=== PATIENT | female | born 2000 | race American Indian/Alaskan Native ===

== ENCOUNTER 2021-06-17 11:21 | Inpatient (IN) | payer BC, MEDICAID ==
[2021-06-17] MEDS ORDERED: METHYLERGONOVINE MALEATE 0.2 MG/ML VIAL IM PRN (13:12)
[2021-06-17] MEDS ORDERED: MINERAL OIL 30 ML ORAL LIQD PO PRN (13:12)
[2021-06-17] MEDS ORDERED: ePHEDrine SULFATE 50 MG/1 ML INJ IV PRN (13:12)
[2021-06-17] MEDS ORDERED: OXYTOCIN 10 UNIT/1 ML INJ IM PRN (13:12)
[2021-06-17] MEDS ORDERED: LOPERAMIDE 2 MG CAP PO PRN (13:12)
[2021-06-17] MEDS ORDERED: ACETAMINOPHEN 325 MG TAB PO PRN (13:12)
[2021-06-17] MEDS ORDERED: CARBOPROST TROMETHAMINE 250 MCG/1 ML INJ IM PRN (13:12)
[2021-06-17] MEDS ORDERED: miSOPROStol 200 MCG TAB PR PRN (13:12)
--- NOTE | 2021-06-17 13:42 | History and Physical Report ---
History of Present Illness Date of examination: 06/17/21 Date of admission: 06/17/21 11:21 Chief complaint: Sent by [facility] for induction of labor. History of present illness: 21 year old presents to L&D for induction of labor; sent for induction by [facility] due to gestational hypertension and morbid obesity. Patient received care at [facility] and also saw [facility]. 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 labs are as follows: A+, antibody screen negative, rubella immune, hepatitis B surface antigen negative, RPR nonreactive, HIV negative, HSV 2 positive serology, AFP negative, 1 hour sugar test 162 (3 hour OGTT 115, 293, 257, 214), materniT 21 negative, GBS positive. Past History Past Medical History: other (obesity, gestational hypertension, GDM, UTI, dominic nthosis nigricans) Past Surgical History: no surgical history [facility] History: herpes (denies lesions or prodromal symptoms). denies: chlamydia, gonorrhea, hepatitis B, hepatitis C Family/Genetic History: diabetes Social history: lives with family, full code. denies: smoking, alcohol abuse, prescription drug abuse, IV drug use - Obstetrical History Expected Date of Delivery: 07/04/21 Actual Gestation: 37 Week(s) 4 Day(s) : 1 Para: 0 Hx # Term Pregnancies: 0 Number of Pregnancies: 0 Spontaneous Abortions: 0 Induced : 0 Medications and Allergies Allergies Allergy/AdvReac Type Severity Reaction Status Date / Time No Known Allergies Allergy Verified 06/17/21 12:55 Home Medications Medication Instructions Recorded Confirmed Last Taken Type One Daily Tablet 1 tab PO DAILY 06/17/21 06/17/21 06/16/21 History labetaloL 1 tab PO BID 06/17/21 06/17/21 06/17/21 History metFORMIN [Glucophage] 500 mg PO BID 06/17/21 06/17/21 06/17/21 07:30 History Active Meds: Active Medications Acetaminophen (Acetaminophen 325 Mg Tab) 650 mg PO Q4H PRN PRN Reason: Pain, Mild (1-3) Butorphanol Tartrate (Butorphanol 2 Mg/1 Ml Inj) 1 mg IV Q2H PRN PRN Reason: Pain, Moderate(4-6) LABOR PAIN Carboprost Tromethamine (Carboprost Tromethamine 250 Mcg/1 Ml Inj) 250 mcg IM ONCE PRN PRN Reason: Uterine Bleeding Dinoprostone (Dinoprostone 10 Mg Vag Supp) 10 mg VG ONCE ONE Stop: 06/17/21 14:13 Ephedrine Sulfate (Ephedrine Sulfate 50 Mg/1 Ml Inj) 10 mg IV Q2M PRN PRN Reason: Hypotension Fentanyl (Fentanyl 100 Mcg/2 Ml Inj) 100 mcg IV Q2H PRN PRN Reason: Pain,Severe (7-10) LABOR PAIN Lactated Ringer's (Lactated Ringers) 1,000 mls @ 125 mls/hr IV DIRECT JORDAN Oxytocin/Sodium Chloride (Pitocin/Ns 30 Unit/500ml) 30 units in 500 mls @ 40 mls/hr IV TITR JORDAN; Protocol Ampicillin Sodium (Ampicillin/Ns 2 Gm/100 Ml) 2 gm in 100 mls @ 100 mls/hr IV ONCE ONE; Protocol Stop: 06/17/21 15:11 Ampicillin Sodium (Ampicillin/Ns 1 Gm/50 Ml) 1 gm in 50 mls @ 100 mls/hr IV Q4H JORDAN; Protocol Lidocaine (Lidocaine (2%) 20 Mg/1 Ml Vial 20 Ml Mdv) 20 ml INFILTRATI ONCE ONE Stop: 06/17/21 13:13 Loperamide HCl (Loperamide 2 Mg Cap) 2 mg PO ONCE PRN PRN Reason: give with Hemabate Methylergonovine Maleate (Methylergonovine Maleate 0.2 Mg/Ml Vial) 0.2 mg IM ONCE PRN PRN Reason: Uterine Bleeding Mineral Oil (Mineral Oil 30 Ml Oral Liqd) 30 ml PO QHS PRN PRN Reason: Constipation Misoprostol (Misoprostol 200 Mcg Tab) 800 mcg OR ONCE PRN PRN Reason: Uterine Bleeding Ondansetron HCl (Ondansetron 4 Mg/2 Ml Inj) 4 mg IV Q8H PRN PRN Reason: Nausea And Vomiting Oxytocin (Oxytocin 10 Unit/1 Ml Inj) 10 unit IM ONCE PRN PRN Reason: Uterine Bleeding Terbutaline Sulfate (Terbutaline 1 Mg/1 Ml Inj) 0.25 mg SUB-Q ONCE PRN PRN Reason: Hyperstimulation/Hypertonicity Valacyclovir HCl (Valacyclovir 500 Mg Tab) 500 mg PO BID JORDAN Review of Systems All systems: negative (occasional contraction) - Vital Signs Vital signs: Vital Signs Pulse BP 88 131/82 06/17/21 12:50 06/17/21 12:50 Temp Pulse Resp BP Pulse Ox 86 131/82 100 06/17/21 13:22 06/17/21 12:50 06/17/21 13:22 - Physical Exam Abdomen: Positive: normal appearance, soft. Negative: distention, tenderness, guarding, rigidity Genitourinary (Female): Positive: normal external genitalia, normal perenium. Negative: perineal/vulvar lesions (no lesions seen on careful exam with bright light upon admission) Vagina: Positive: normal moisture Uterus: Positive: enlarged. Negative: tender Anus/Rectum: Positive: normal perianal skin Extremities: Positive: normal. Negative: tenderness, edema - Obstetrical FHR: category 1 Uterine Contraction Monitor Mode: External Cervical Dilatation: 0 Cervical Effacement Percentage: 0 (US done at [facility] today confirms cephalic presentation) station: high Uterine Contraction Pattern: Absent Results All other labs normal. Assessment and Plan A: at 37 weeks, 4 days gestation. Gestational hypertension. Gestational diabetes. Class 3 obesity. GBS positive. HSV 2 positive (no lesions or prodromal symptoms). P: Admit. Continuous EFM. GBS prophylaxis. Valtrex suppression of HSV. Preeclamptic labs. Blood glucose every 2 hours. Cervidil for cervical ripening, followed by Pitocin IOL. Discussed with patient risks and benefits of cervidil cervical ripening and Pitocin induction of labor. Patient consented to Cervidil cervical ripening and Pitocin induction of labor.
[2021-06-17] MEDS ORDERED: LIDOCAINE (2%) 20 MG/1 ML VIAL 20 ML MDV INFILTRATI ONE (13:45)
[2021-06-17] MEDS ORDERED: AMPICILLIN/NS 2 GM/100 ML 2 GM/100 ML BAG IV ONE (14:12)
[2021-06-17] MEDS ORDERED: TERBUTALINE 1 MG/1 ML INJ SUB-Q PRN (14:12)
[2021-06-17] MEDS ORDERED: DINOPROSTONE 10 MG VAG SUPP VG ONE (14:12)
[2021-06-17 14:17] LABS: Alanine Aminotransferase 13 units/L (7-56); Blood Urea Nitrogen 9 mg/dL (7-17); Calcium 8.9 mg/dL (8.4-10.2); Hemolysis Index 6; Uric Acid 3.9 mg/dL (3.5-7.6)
[2021-06-17 14:24] LABS: Hematocrit 32.1 % (30.3-42.9); Hemoglobin 9.9 gm/dl (10.1-14.3); Mean Corpuscular HGB Conc 31 % (30-34); Red Blood Count 4.65 M/mm3 (3.65-5.03); Red Cell Distribution Width 18.3 % (13.2-15.2)
[2021-06-17 14:26] LABS: Mean Corpuscular Volume 69 fl (79-97)
[2021-06-17 14:33] LABS: BUN/Creatinine Ratio 15
[2021-06-17 15:54] LABS: Platelet Count 150 K/mm3 (140-440)
[2021-06-17] MEDS: valACYclovir 500 MG TAB PO SCH ×2 (16:05→22:07)
[2021-06-17] MEDS ORDERED: DEXTROSE 50% IN WATER (25GM) 50 ML SYRINGE IV PRN (17:44)
[2021-06-17] MEDS ORDERED: AMPICILLIN/NS 1 GM/50 ML 1 GM/50 ML BAG IV SCH (18:00)
[2021-06-17] MEDS: fentaNYL 100 MCG/2 ML INJ IV PRN ×2 (19:44→22:07)
[2021-06-17] MEDS: LACTATED RINGERS 1,000 ML IV SCH (20:16)
[2021-06-17] MEDS ORDERED: INSULIN REGULAR, HUMAN 100 UNITS/1 ML SUB-Q SCH (22:00)
[2021-06-18] MEDS: fentaNYL 100 MCG/2 ML INJ IV PRN ×3 (00:40→06:43)
[2021-06-18] MEDS: OXYTOCIN DRIP 30 UNITS/500 ML BAG IV SCH (03:00)
--- NOTE | 2021-06-18 06:49 | Event Note ---
Date: 06/18/21 Cervidil was removed overnight due to hyperstimulation which has resolved. Patient is now receiving low dose Pitocin for cervical ripening. Blood sugars and blood pressures stable. Reassuring FHR tracing.
[2021-06-18] MEDS ORDERED: miSOPROStol 25 MCG TAB PO SCH ×2 (10:00→21:00)
[2021-06-18] MEDS: valACYclovir 500 MG TAB PO SCH ×2 (10:10→21:32)
--- NOTE | 2021-06-18 10:50 | Progress Note ---
Subjective - Subjective Date of service: 06/18/21 (late entry for 8:15 am) Principal diagnosis: IUP@ 37.4 wks Patient reports: movement normal, contractions Objective - Vital Signs Vital Signs: Vital Signs - 12hr 06/17/21 06/17/21 06/17/21 22:50 22:55 23:00 Temperature Pulse Rate 74 77 67 Respiratory Rate Blood Pressure O2 Sat by Pulse 99 99 99 Oximetry O2 Sat by Pulse Oximetry [ Bilateral] 06/17/21 06/17/21 06/17/21 23:05 23:12 23:17 Temperature Pulse Rate 67 69 Respiratory Rate Blood Pressure O2 Sat by Pulse 99 100 100 Oximetry O2 Sat by Pulse Oximetry [ Bilateral] 06/17/21 06/17/21 06/17/21 23:22 23:27 23:32 Temperature Pulse Rate 70 62 72 Respiratory Rate Blood Pressure O2 Sat by Pulse 99 100 100 Oximetry O2 Sat by Pulse Oximetry [ Bilateral] 06/17/21 06/17/21 06/17/21 23:37 23:42 23:47 Temperature Pulse Rate 62 69 74 Respiratory Rate Blood Pressure O2 Sat by Pulse 99 100 100 Oximetry O2 Sat by Pulse Oximetry [ Bilateral] 06/17/21 06/17/21 06/18/21 23:52 23:57 00:02 Temperature Pulse Rate 77 66 73 Respiratory Rate Blood Pressure O2 Sat by Pulse 99 99 100 Oximetry O2 Sat by Pulse Oximetry [ Bilateral] 06/18/21 06/18/21 06/18/21 00:07 00:12 00:17 Temperature Pulse Rate 63 74 65 Respiratory Rate Blood Pressure O2 Sat by Pulse 99 100 99 Oximetry O2 Sat by Pulse Oximetry [ Bilateral] 06/18/21 06/18/21 06/18/21 00:22 00:27 00:32 Temperature Pulse Rate 69 82 71 Respiratory Rate Blood Pressure O2 Sat by Pulse 99 100 100 Oximetry O2 Sat by Pulse Oximetry [ Bilateral] 06/18/21 06/18/21 06/18/21 00:37 00:42 00:47 Temperature Pulse Rate 76 73 77 Respiratory Rate Blood Pressure 148/79 O2 Sat by Pulse 100 99 98 Oximetry O2 Sat by Pulse Oximetry [ Bilateral] 06/18/21 06/18/21 06/18/21 00:52 00:57 01:02 Temperature Pulse Rate 69 70 75 Respiratory Rate Blood Pressure O2 Sat by Pulse 99 99 98 Oximetry O2 Sat by Pulse Oximetry [ Bilateral] 06/18/21 06/18/21 06/18/21 01:07 01:10 01:12 Temperature Pulse Rate 75 78 76 Respiratory Rate Blood Pressure 128/67 O2 Sat by Pulse 99 98 Oximetry O2 Sat by Pulse Oximetry [ Bilateral] 06/18/21 06/18/21 06/18/21 01:17 01:22 01:27 Temperature Pulse Rate 72 70 81 Respiratory Rate Blood Pressure O2 Sat by Pulse 98 98 98 Oximetry O2 Sat by Pulse Oximetry [ Bilateral] 06/18/21 06/18/21 06/18/21 01:32 01:37 01:42 Temperature Pulse Rate 67 63 70 Respiratory Rate Blood Pressure O2 Sat by Pulse 100 98 99 Oximetry O2 Sat by Pulse Oximetry [ Bilateral] 06/18/21 06/18/21 06/18/21 01:49 01:54 01:55 Temperature Pulse Rate 77 74 67 Respiratory Rate Blood Pressure 127/67 O2 Sat by Pulse 99 99 Oximetry O2 Sat by Pulse Oximetry [ Bilateral] 06/18/21 06/18/21 06/18/21 01:59 02:04 02:09 Temperature Pulse Rate 67 65 64 Respiratory Rate Blood Pressure O2 Sat by Pulse 98 99 99 Oximetry O2 Sat by Pulse Oximetry [ Bilateral] 06/18/21 06/18/21 06/18/21 02:14 02:19 02:24 Temperature Pulse Rate 66 65 68 Respiratory Rate Blood Pressure O2 Sat by Pulse 100 99 100 Oximetry O2 Sat by Pulse Oximetry [ Bilateral] 06/18/21 06/18/21 06/18/21 02:29 02:31 02:34 Temperature Pulse Rate 83 75 72 Respiratory Rate Blood Pressure 171/90 127/60 O2 Sat by Pulse 100 99 Oximetry O2 Sat by Pulse Oximetry [ Bilateral] 06/18/21 06/18/21 06/18/21 02:42 02:47 02:52 Temperature Pulse Rate 94 H 72 65 Respiratory Rate Blood Pressure O2 Sat by Pulse 0 L 100 99 Oximetry O2 Sat by Pulse Oximetry [ Bilateral] 06/18/21 06/18/21 06/18/21 02:57 03:01 03:02 Temperature Pulse Rate 76 66 71 Respiratory Rate Blood Pressure 143/88 O2 Sat by Pulse 100 100 Oximetry O2 Sat by Pulse Oximetry [ Bilateral] 06/18/21 06/18/21 06/18/21 03:06 03:07 03:12 Temperature Pulse Rate 69 64 70 Respiratory Rate Blood Pressure 141/68 O2 Sat by Pulse 100 100 Oximetry O2 Sat by Pulse Oximetry [ Bilateral] 06/18/21 06/18/21 06/18/21 03:17 03:22 03:27 Temperature Pulse Rate 72 73 84 Respiratory Rate Blood Pressure O2 Sat by Pulse 97 98 97 Oximetry O2 Sat by Pulse Oximetry [ Bilateral] 06/18/21 06/18/21 06/18/21 03:31 03:32 03:34 Temperature Pulse Rate 78 80 72 Respiratory Rate Blood Pressure 141/68 133/63 O2 Sat by Pulse 99 Oximetry O2 Sat by Pulse Oximetry [ Bilateral] 06/18/21 06/18/21 06/18/21 03:37 03:42 03:47 Temperature Pulse Rate 70 66 63 Respiratory Rate Blood Pressure O2 Sat by Pulse 98 98 98 Oximetry O2 Sat by Pulse Oximetry [ Bilateral] 06/18/21 06/18/21 06/18/21 03:52 03:57 04:01 Temperature Pulse Rate 66 72 63 Respiratory Rate Blood Pressure 149/83 O2 Sat by Pulse 98 98 Oximetry O2 Sat by Pulse Oximetry [ Bilateral] 06/18/21 06/18/21 06/18/21 04:02 04:07 04:12 Temperature Pulse Rate 70 65 67 Respiratory Rate Blood Pressure O2 Sat by Pulse 98 99 99 Oximetry O2 Sat by Pulse Oximetry [ Bilateral] 06/18/21 06/18/21 06/18/21 04:20 04:25 04:30 Temperature Pulse Rate 75 68 62 Respiratory Rate Blood Pressure O2 Sat by Pulse 100 100 100 Oximetry O2 Sat by Pulse Oximetry [ Bilateral] 06/18/21 06/18/21 06/18/21 04:31 04:35 04:40 Temperature Pulse Rate 61 67 63 Respiratory Rate Blood Pressure 132/78 O2 Sat by Pulse 100 100 Oximetry O2 Sat by Pulse Oximetry [ Bilateral] 06/18/21 06/18/21 06/18/21 04:45 04:50 04:55 Temperature Pulse Rate 75 74 78 Respiratory Rate Blood Pressure O2 Sat by Pulse 100 100 98 Oximetry O2 Sat by Pulse Oximetry [ Bilateral] 06/18/21 06/18/21 06/18/21 05:02 05:07 05:12 Temperature Pulse Rate 101 H 67 70 Respiratory Rate Blood Pressure 140/87 O2 Sat by Pulse 100 99 99 Oximetry O2 Sat by Pulse Oximetry [ Bilateral] 06/18/21 06/18/21 06/18/21 05:17 05:22 05:27 Temperature Pulse Rate 66 73 69 Respiratory Rate Blood Pressure O2 Sat by Pulse 99 100 100 Oximetry O2 Sat by Pulse Oximetry [ Bilateral] 06/18/21 06/18/21 06/18/21 05:31 05:32 05:37 Temperature Pulse Rate 74 65 70 Respiratory Rate Blood Pressure 128/63 O2 Sat by Pulse 98 99 Oximetry O2 Sat by Pulse Oximetry [ Bilateral] 06/18/21 06/18/21 06/18/21 05:42 05:47 05:52 Temperature Pulse Rate 76 67 73 Respiratory Rate Blood Pressure O2 Sat by Pulse 98 99 98 Oximetry O2 Sat by Pulse Oximetry [ Bilateral] 06/18/21 06/18/21 06/18/21 06:05 06:10 06:15 Temperature Pulse Rate 77 68 72 Respiratory Rate Blood Pressure O2 Sat by Pulse 100 99 97 Oximetry O2 Sat by Pulse Oximetry [ Bilateral] 06/18/21 06/18/21 06/18/21 06:17 06:20 06:22 Temperature Pulse Rate 77 69 80 Respiratory Rate Blood Pressure 145/79 141/70 O2 Sat by Pulse 98 Oximetry O2 Sat by Pulse Oximetry [ Bilateral] 06/18/21 06/18/21 06/18/21 06:25 06:30 06:31 Temperature Pulse Rate 68 66 62 Respiratory Rate Blood Pressure 142/81 O2 Sat by Pulse 99 100 Oximetry O2 Sat by Pulse Oximetry [ Bilateral] 06/18/21 06/18/21 06/18/21 06:35 06:40 06:45 Temperature Pulse Rate 72 79 74 Respiratory Rate Blood Pressure O2 Sat by Pulse 100 100 99 Oximetry O2 Sat by Pulse Oximetry [ Bilateral] 06/18/21 06/18/21 06/18/21 06:50 06:55 07:00 Temperature Pulse Rate 65 74 69 Respiratory Rate Blood Pressure O2 Sat by Pulse 98 96 98 Oximetry O2 Sat by Pulse Oximetry [ Bilateral] 06/18/21 06/18/21 06/18/21 07:01 07:05 07:10 Temperature Pulse Rate 69 74 74 Respiratory Rate Blood Pressure 147/80 O2 Sat by Pulse 97 98 Oximetry O2 Sat by Pulse Oximetry [ Bilateral] 06/18/21 06/18/21 06/18/21 07:15 07:16 07:34 Temperature Pulse Rate 76 73 87 Respiratory Rate Blood Pressure 144/83 O2 Sat by Pulse 95 100 Oximetry O2 Sat by Pulse Oximetry [ Bilateral] 06/18/21 06/18/21 06/18/21 07:38 07:39 07:44 Temperature 98.2 F Pulse Rate 79 70 Respiratory 18 Rate Blood Pressure O2 Sat by Pulse 99 100 Oximetry O2 Sat by Pulse 98 Oximetry [ Bilateral] 06/18/21 06/18/21 06/18/21 07:49 07:54 07:59 Temperature Pulse Rate 69 74 70 Respiratory Rate Blood Pressure O2 Sat by Pulse 99 98 99 Oximetry O2 Sat by Pulse Oximetry [ Bilateral] 06/18/21 06/18/21 06/18/21 08:04 08:09 08:14 Temperature Pulse Rate 71 66 64 Respiratory Rate Blood Pressure O2 Sat by Pulse 100 99 100 Oximetry O2 Sat by Pulse Oximetry [ Bilateral] 06/18/21 06/18/21 06/18/21 08:19 08:24 08:29 Temperature Pulse Rate 70 72 71 Respiratory Rate Blood Pressure O2 Sat by Pulse 99 100 99 Oximetry O2 Sat by Pulse Oximetry [ Bilateral] 06/18/21 06/18/21 06/18/21 08:34 08:39 08:44 Temperature Pulse Rate 65 67 73 Respiratory Rate Blood Pressure O2 Sat by Pulse 98 100 100 Oximetry O2 Sat by Pulse Oximetry [ Bilateral] 06/18/21 06/18/21 06/18/21 08:47 08:49 09:01 Temperature Pulse Rate 70 72 86 Respiratory Rate Blood Pressure 142/63 O2 Sat by Pulse 100 100 Oximetry O2 Sat by Pulse Oximetry [ Bilateral] 06/18/21 06/18/21 10:04 10:10 Temperature Pulse Rate 71 77 Respiratory Rate Blood Pressure 153/86 154/88 O2 Sat by Pulse Oximetry O2 Sat by Pulse Oximetry [ Bilateral] - Labs Labs: Abnormal Labs 06/17/21 06/17/21 06/17/21 13:22 13:22 16:22 Hgb 9.9 L MCV 69 L MCH 21 L RDW 18.3 H Sodium 136 L Carbon Dioxide 21 L POC Glucose 171 H Hemoglobin A1c Alkaline Phosphatase 197 H Total Protein 6.2 L Albumin 3.0 L 08/25/21 08/25/21 18:24 19:08 Hgb MCV MCH RDW Sodium Carbon Dioxide POC Glucose 129 H Hemoglobin A1c 9.6 H Alkaline Phosphatase Total Protein Albumin Laboratory Results - last 24 hr 06/17/21 06/17/21 06/17/21 13:22 13:22 13:22 WBC 6.7 RBC 4.65 Hgb 9.9 L Hct 32.1 MCV 69 L MCH 21 L MCHC 31 RDW 18.3 H Plt Count 150 Sodium Potassium Chloride Carbon Dioxide Anion Gap BUN Creatinine Estimated GFR BUN/Creatinine Ratio Glucose POC Glucose Hemoglobin A1c Uric Acid Calcium Total Bilirubin AST ALT Alkaline Phosphatase Lactate Dehydrogenase Total Protein Albumin Albumin/Globulin Ratio Syphilis IgG Antibody Nonreactive Blood Type A POSITIVE Antibody Screen Negative 06/17/21 06/17/21 06/17/21 13:22 16:22 18:24 WBC RBC Hgb Hct MCV MCH MCHC RDW Plt Count Sodium 136 L Potassium 4.1 Chloride 106.9 Carbon Dioxide 21 L Anion Gap 12 BUN 9 Creatinine 0.6 Estimated GFR > 60 BUN/Creatinine Ratio 15 Glucose 86 POC Glucose 171 H 129 H Hemoglobin A1c Uric Acid 3.9 Calcium 8.9 Total Bilirubin 0.20 AST 17 ALT 13 Alkaline Phosphatase 197 H Lactate Dehydrogenase 165 Total Protein 6.2 L Albumin 3.0 L Albumin/Globulin Ratio 0.9 Syphilis IgG Antibody Blood Type Antibody Screen 06/17/21 06/17/21 06/17/21 19:08 20:25 22:11 WBC RBC Hgb Hct MCV MCH MCHC RDW Plt Count Sodium Potassium Chloride Carbon Dioxide Anion Gap BUN Creatinine Estimated GFR BUN/Creatinine Ratio Glucose POC Glucose 100 99 Hemoglobin A1c 9.6 H Uric Acid Calcium Total Bilirubin AST ALT Alkaline Phosphatase Lactate Dehydrogenase Total Protein Albumin Albumin/Globulin Ratio Syphilis IgG Antibody Blood Type Antibody Screen 06/18/21 06/18/21 06/18/21 00:36 03:22 06:35 WBC RBC Hgb Hct MCV MCH MCHC RDW Plt Count Sodium Potassium Chloride Carbon Dioxide Anion Gap BUN Creatinine Estimated GFR BUN/Creatinine Ratio Glucose POC Glucose 88 87 98 Hemoglobin A1c Uric Acid Calcium Total Bilirubin AST ALT Alkaline Phosphatase Lactate Dehydrogenase Total Protein Albumin Albumin/Globulin Ratio Syphilis IgG Antibody Blood Type Antibody Screen 06/18/21 09:09 WBC RBC Hgb Hct MCV MCH MCHC RDW Plt Count Sodium Potassium Chloride Carbon Dioxide Anion Gap BUN Creatinine Estimated GFR BUN/Creatinine Ratio Glucose POC Glucose 95 Hemoglobin A1c Uric Acid Calcium Total Bilirubin AST ALT Alkaline Phosphatase Lactate Dehydrogenase Total Protein Albumin Albumin/Globulin Ratio Syphilis IgG Antibody Blood Type Antibody Screen
[2021-06-18] MEDS: miSOPROStol 25 MCG TAB PO SCH ×2 (11:15→16:40)
--- NOTE | 2021-06-18 11:15 | Progress Note ---
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 GBS protocal FSBS Q4H D/C Pitocin Give Cytotec 25mcg po in 2 hrs and repeat dose in 6 hr Pain med/Epidural prn Anticipate Subjective - Subjective Date of service: 06/18/21 Principal diagnosis: IUP@ 37.4 wks Patient reports: movement normal Objective - Vital Signs Vital Signs: Vital Signs - 12hr 06/17/21 06/17/21 06/17/21 23:12 23:17 23:22 Temperature Pulse Rate 69 70 Respiratory Rate Blood Pressure O2 Sat by Pulse 100 100 99 Oximetry O2 Sat by Pulse Oximetry [ Bilateral] 06/17/21 06/17/21 06/17/21 23:27 23:32 23:37 Temperature Pulse Rate 62 72 62 Respiratory Rate Blood Pressure O2 Sat by Pulse 100 100 99 Oximetry O2 Sat by Pulse Oximetry [ Bilateral] 06/17/21 06/17/21 06/17/21 23:42 23:47 23:52 Temperature Pulse Rate 69 74 77 Respiratory Rate Blood Pressure O2 Sat by Pulse 100 100 99 Oximetry O2 Sat by Pulse Oximetry [ Bilateral] 06/17/21 06/18/21 06/18/21 23:57 00:02 00:07 Temperature Pulse Rate 66 73 63 Respiratory Rate Blood Pressure O2 Sat by Pulse 99 100 99 Oximetry O2 Sat by Pulse Oximetry [ Bilateral] 06/18/21 06/18/21 06/18/21 00:12 00:17 00:22 Temperature Pulse Rate 74 65 69 Respiratory Rate Blood Pressure O2 Sat by Pulse 100 99 99 Oximetry O2 Sat by Pulse Oximetry [ Bilateral] 06/18/21 06/18/21 06/18/21 00:27 00:32 00:37 Temperature Pulse Rate 82 71 76 Respiratory Rate Blood Pressure 148/79 O2 Sat by Pulse 100 100 100 Oximetry O2 Sat by Pulse Oximetry [ Bilateral] 06/18/21 06/18/21 06/18/21 00:42 00:47 00:52 Temperature Pulse Rate 73 77 69 Respiratory Rate Blood Pressure O2 Sat by Pulse 99 98 99 Oximetry O2 Sat by Pulse Oximetry [ Bilateral] 06/18/21 06/18/21 06/18/21 00:57 01:02 01:07 Temperature Pulse Rate 70 75 75 Respiratory Rate Blood Pressure O2 Sat by Pulse 99 98 99 Oximetry O2 Sat by Pulse Oximetry [ Bilateral] 06/18/21 06/18/21 06/18/21 01:10 01:12 01:17 Temperature Pulse Rate 78 76 72 Respiratory Rate Blood Pressure 128/67 O2 Sat by Pulse 98 98 Oximetry O2 Sat by Pulse Oximetry [ Bilateral] 06/18/21 06/18/21 06/18/21 01:22 01:27 01:32 Temperature Pulse Rate 70 81 67 Respiratory Rate Blood Pressure O2 Sat by Pulse 98 98 100 Oximetry O2 Sat by Pulse Oximetry [ Bilateral] 06/18/21 06/18/21 06/18/21 01:37 01:42 01:49 Temperature Pulse Rate 63 70 77 Respiratory Rate Blood Pressure O2 Sat by Pulse 98 99 99 Oximetry O2 Sat by Pulse Oximetry [ Bilateral] 06/18/21 06/18/21 06/18/21 01:54 01:55 01:59 Temperature Pulse Rate 74 67 67 Respiratory Rate Blood Pressure 127/67 O2 Sat by Pulse 99 98 Oximetry O2 Sat by Pulse Oximetry [ Bilateral] 06/18/21 06/18/21 06/18/21 02:04 02:09 02:14 Temperature Pulse Rate 65 64 66 Respiratory Rate Blood Pressure O2 Sat by Pulse 99 99 100 Oximetry O2 Sat by Pulse Oximetry [ Bilateral] 06/18/21 06/18/21 06/18/21 02:19 02:24 02:29 Temperature Pulse Rate 65 68 83 Respiratory Rate Blood Pressure O2 Sat by Pulse 99 100 100 Oximetry O2 Sat by Pulse Oximetry [ Bilateral] 06/18/21 06/18/21 06/18/21 02:31 02:34 02:42 Temperature Pulse Rate 75 72 94 H Respiratory Rate Blood Pressure 171/90 127/60 O2 Sat by Pulse 99 0 L Oximetry O2 Sat by Pulse Oximetry [ Bilateral] 06/18/21 06/18/21 06/18/21 02:47 02:52 02:57 Temperature Pulse Rate 72 65 76 Respiratory Rate Blood Pressure O2 Sat by Pulse 100 99 100 Oximetry O2 Sat by Pulse Oximetry [ Bilateral] 06/18/21 06/18/21 06/18/21 03:01 03:02 03:06 Temperature Pulse Rate 66 71 69 Respiratory Rate Blood Pressure 143/88 141/68 O2 Sat by Pulse 100 Oximetry O2 Sat by Pulse Oximetry [ Bilateral] 06/18/21 06/18/21 06/18/21 03:07 03:12 03:17 Temperature Pulse Rate 64 70 72 Respiratory Rate Blood Pressure O2 Sat by Pulse 100 100 97 Oximetry O2 Sat by Pulse Oximetry [ Bilateral] 06/18/21 06/18/21 06/18/21 03:22 03:27 03:31 Temperature Pulse Rate 73 84 78 Respiratory Rate Blood Pressure 141/68 O2 Sat by Pulse 98 97 Oximetry O2 Sat by Pulse Oximetry [ Bilateral] 06/18/21 06/18/21 06/18/21 03:32 03:34 03:37 Temperature Pulse Rate 80 72 70 Respiratory Rate Blood Pressure 133/63 O2 Sat by Pulse 99 98 Oximetry O2 Sat by Pulse Oximetry [ Bilateral] 06/18/21 06/18/21 06/18/21 03:42 03:47 03:52 Temperature Pulse Rate 66 63 66 Respiratory Rate Blood Pressure O2 Sat by Pulse 98 98 98 Oximetry O2 Sat by Pulse Oximetry [ Bilateral] 06/18/21 06/18/21 06/18/21 03:57 04:01 04:02 Temperature Pulse Rate 72 63 70 Respiratory Rate Blood Pressure 149/83 O2 Sat by Pulse 98 98 Oximetry O2 Sat by Pulse Oximetry [ Bilateral] 06/18/21 06/18/21 06/18/21 04:07 04:12 04:20 Temperature Pulse Rate 65 67 75 Respiratory Rate Blood Pressure O2 Sat by Pulse 99 99 100 Oximetry O2 Sat by Pulse Oximetry [ Bilateral] 06/18/21 06/18/21 06/18/21 04:25 04:30 04:31 Temperature Pulse Rate 68 62 61 Respiratory Rate Blood Pressure 132/78 O2 Sat by Pulse 100 100 Oximetry O2 Sat by Pulse Oximetry [ Bilateral] 06/18/21 06/18/21 06/18/21 04:35 04:40 04:45 Temperature Pulse Rate 67 63 75 Respiratory Rate Blood Pressure O2 Sat by Pulse 100 100 100 Oximetry O2 Sat by Pulse Oximetry [ Bilateral] 06/18/21 06/18/21 06/18/21 04:50 04:55 05:02 Temperature Pulse Rate 74 78 101 H Respiratory Rate Blood Pressure O2 Sat by Pulse 100 98 100 Oximetry O2 Sat by Pulse Oximetry [ Bilateral] 06/18/21 06/18/21 06/18/21 05:07 05:12 05:17 Temperature Pulse Rate 67 70 66 Respiratory Rate Blood Pressure 140/87 O2 Sat by Pulse 99 99 99 Oximetry O2 Sat by Pulse Oximetry [ Bilateral] 06/18/21 06/18/21 06/18/21 05:22 05:27 05:31 Temperature Pulse Rate 73 69 74 Respiratory Rate Blood Pressure 128/63 O2 Sat by Pulse 100 100 Oximetry O2 Sat by Pulse Oximetry [ Bilateral] 06/18/21 06/18/21 06/18/21 05:32 05:37 05:42 Temperature Pulse Rate 65 70 76 Respiratory Rate Blood Pressure O2 Sat by Pulse 98 99 98 Oximetry O2 Sat by Pulse Oximetry [ Bilateral] 06/18/21 06/18/21 06/18/21 05:47 05:52 06:05 Temperature Pulse Rate 67 73 77 Respiratory Rate Blood Pressure O2 Sat by Pulse 99 98 100 Oximetry O2 Sat by Pulse Oximetry [ Bilateral] 06/18/21 06/18/21 06/18/21 06:10 06:15 06:17 Temperature Pulse Rate 68 72 77 Respiratory Rate Blood Pressure 145/79 O2 Sat by Pulse 99 97 Oximetry O2 Sat by Pulse Oximetry [ Bilateral] 06/18/21 06/18/21 06/18/21 06:20 06:22 06:25 Temperature Pulse Rate 69 80 68 Respiratory Rate Blood Pressure 141/70 O2 Sat by Pulse 98 99 Oximetry O2 Sat by Pulse Oximetry [ Bilateral] 06/18/21 06/18/21 06/18/21 06:30 06:31 06:35 Temperature Pulse Rate 66 62 72 Respiratory Rate Blood Pressure 142/81 O2 Sat by Pulse 100 100 Oximetry O2 Sat by Pulse Oximetry [ Bilateral] 06/18/21 06/18/21 06/18/21 06:40 06:45 06:50 Temperature Pulse Rate 79 74 65 Respiratory Rate Blood Pressure O2 Sat by Pulse 100 99 98 Oximetry O2 Sat by Pulse Oximetry [ Bilateral] 06/18/21 06/18/21 06/18/21 06:55 07:00 07:01 Temperature Pulse Rate 74 69 69 Respiratory Rate Blood Pressure 147/80 O2 Sat by Pulse 96 98 Oximetry O2 Sat by Pulse Oximetry [ Bilateral] 06/18/21 06/18/21 06/18/21 07:05 07:10 07:15 Temperature Pulse Rate 74 74 76 Respiratory Rate Blood Pressure O2 Sat by Pulse 97 98 95 Oximetry O2 Sat by Pulse Oximetry [ Bilateral] 06/18/21 06/18/21 06/18/21 07:16 07:34 07:38 Temperature 98.2 F Pulse Rate 73 87 Respiratory 18 Rate Blood Pressure 144/83 O2 Sat by Pulse 100 Oximetry O2 Sat by Pulse Oximetry [ Bilateral] 06/18/21 06/18/21 06/18/21 07:39 07:44 07:49 Temperature Pulse Rate 79 70 69 Respiratory Rate Blood Pressure O2 Sat by Pulse 99 100 99 Oximetry O2 Sat by Pulse 98 Oximetry [ Bilateral] 06/18/21 06/18/21 06/18/21 07:54 07:59 08:04 Temperature Pulse Rate 74 70 71 Respiratory Rate Blood Pressure O2 Sat by Pulse 98 99 100 Oximetry O2 Sat by Pulse Oximetry [ Bilateral] 06/18/21 06/18/21 06/18/21 08:09 08:14 08:19 Temperature Pulse Rate 66 64 70 Respiratory Rate Blood Pressure O2 Sat by Pulse 99 100 99 Oximetry O2 Sat by Pulse Oximetry [ Bilateral] 06/18/21 06/18/21 06/18/21 08:24 08:29 08:34 Temperature Pulse Rate 72 71 65 Respiratory Rate Blood Pressure O2 Sat by Pulse 100 99 98 Oximetry O2 Sat by Pulse Oximetry [ Bilateral] 06/18/21 06/18/21 06/18/21 08:39 08:44 08:47 Temperature Pulse Rate 67 73 70 Respiratory Rate Blood Pressure 142/63 O2 Sat by Pulse 100 100 Oximetry O2 Sat by Pulse Oximetry [ Bilateral] 06/18/21 06/18/21 06/18/21 08:49 09:01 10:04 Temperature Pulse Rate 72 86 71 Respiratory Rate Blood Pressure 153/86 O2 Sat by Pulse 100 100 Oximetry O2 Sat by Pulse Oximetry [ Bilateral] 06/18/21 10:10 Temperature Pulse Rate 77 Respiratory Rate Blood Pressure 154/88 O2 Sat by Pulse Oximetry O2 Sat by Pulse Oximetry [ Bilateral] - Exam Breasts: deferred Abdomen: Present: normal appearance, soft, normal bowel sounds Vulva: both: normal Uterus: Present: normal, firm FHR: auscultation normal, category 1 Uterine Contraction Monitor Mode: External Cervical Dilatation: 0 Cervical Effacement Percentage: 10 station: -4 Uterine Contraction Pattern: Irregular Uterine Tone Measurement Phase: Resting Uterine Contraction Intensity: Mild Extremities: normal - Labs Labs: Abnormal Labs 06/17/21 06/17/21 06/17/21 13:22 13:22 16:22 Hgb 9.9 L MCV 69 L MCH 21 L RDW 18.3 H Sodium 136 L Carbon Dioxide 21 L POC Glucose 171 H Hemoglobin A1c Alkaline Phosphatase 197 H Total Protein 6.2 L Albumin 3.0 L 06/17/21 06/17/21 18:24 19:08 Hgb MCV MCH RDW Sodium Carbon Dioxide POC Glucose 129 H Hemoglobin A1c 9.6 H Alkaline Phosphatase Total Protein Albumin Laboratory Results - last 24 hr 06/17/21 06/17/21 06/17/21 13:22 13:22 13:22 WBC 6.7 RBC 4.65 Hgb 9.9 L Hct 32.1 MCV 69 L MCH 21 L MCHC 31 RDW 18.3 H Plt Count 150 Sodium Potassium Chloride Carbon Dioxide Anion Gap BUN Creatinine Estimated GFR BUN/Creatinine Ratio Glucose POC Glucose Hemoglobin A1c Uric Acid Calcium Total Bilirubin AST ALT Alkaline Phosphatase Lactate Dehydrogenase Total Protein Albumin Albumin/Globulin Ratio Syphilis IgG Antibody Nonreactive Blood Type A POSITIVE Antibody Screen Negative 06/17/21 06/17/21 06/17/21 13:22 16:22 18:24 WBC RBC Hgb Hct MCV MCH MCHC RDW Plt Count Sodium 136 L Potassium 4.1 Chloride 106.9 Carbon Dioxide 21 L Anion Gap 12 BUN 9 Creatinine 0.6 Estimated GFR > 60 BUN/Creatinine Ratio 15 Glucose 86 POC Glucose 171 H 129 H Hemoglobin A1c Uric Acid 3.9 Calcium 8.9 Total Bilirubin 0.20 AST 17 ALT 13 Alkaline Phosphatase 197 H Lactate Dehydrogenase 165 Total Protein 6.2 L Albumin 3.0 L Albumin/Globulin Ratio 0.9 Syphilis IgG Antibody Blood Type Antibody Screen 06/17/21 06/17/21 06/17/21 19:08 20:25 22:11 WBC RBC Hgb Hct MCV MCH MCHC RDW Plt Count Sodium Potassium Chloride Carbon Dioxide Anion Gap BUN Creatinine Estimated GFR BUN/Creatinine Ratio Glucose POC Glucose 100 99 Hemoglobin A1c 9.6 H Uric Acid Calcium Total Bilirubin AST ALT Alkaline Phosphatase Lactate Dehydrogenase Total Protein Albumin Albumin/Globulin Ratio Syphilis IgG Antibody Blood Type Antibody Screen 06/18/21 06/18/21 06/18/21 00:36 03:22 06:35 WBC RBC Hgb Hct MCV MCH MCHC RDW Plt Count Sodium Potassium Chloride Carbon Dioxide Anion Gap BUN Creatinine Estimated GFR BUN/Creatinine Ratio Glucose POC Glucose 88 87 98 Hemoglobin A1c Uric Acid Calcium Total Bilirubin AST ALT Alkaline Phosphatase Lactate Dehydrogenase Total Protein Albumin Albumin/Globulin Ratio Syphilis IgG Antibody Blood Type Antibody Screen 06/18/21 09:09 WBC RBC Hgb Hct MCV MCH MCHC RDW Plt Count Sodium Potassium Chloride Carbon Dioxide Anion Gap BUN Creatinine Estimated GFR BUN/Creatinine Ratio Glucose POC Glucose 95 Hemoglobin A1c Uric Acid Calcium Total Bilirubin AST ALT Alkaline Phosphatase Lactate Dehydrogenase Total Protein Albumin Albumin/Globulin Ratio Syphilis IgG Antibody Blood Type Antibody Screen
[2021-06-18] MEDS: ONDANSETRON 4 MG/2 ML INJ IV PRN (11:16)
[2021-06-18] MEDS: LACTATED RINGERS 1,000 ML IV SCH (14:41)
[2021-06-18] MEDS: BUTORPHANOL 2 MG/1 ML INJ IV PRN ×3 (18:47→23:49)
--- NOTE | 2021-06-18 19:21 | Progress Note ---
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 cytotec 50mcg x 4 doses Anticipate progress Subjective - Subjective Date of service: 06/18/21 Principal diagnosis: IUP@ 37.4 wks Patient reports: movement normal Objective - Vital Signs Vital Signs: Vital Signs - 12hr 06/18/21 06/18/21 06/18/21 07:34 07:38 07:39 Temperature 98.2 F Pulse Rate 87 79 Respiratory 18 Rate Blood Pressure O2 Sat by Pulse 100 99 Oximetry O2 Sat by Pulse Oximetry [ Bilateral] 06/18/21 06/18/21 06/18/21 07:44 07:49 07:54 Temperature Pulse Rate 70 69 74 Respiratory Rate Blood Pressure O2 Sat by Pulse 100 99 98 Oximetry O2 Sat by Pulse 98 Oximetry [ Bilateral] 06/18/21 06/18/21 06/18/21 07:59 08:04 08:09 Temperature Pulse Rate 70 71 66 Respiratory Rate Blood Pressure O2 Sat by Pulse 99 100 99 Oximetry O2 Sat by Pulse Oximetry [ Bilateral] 06/18/21 06/18/21 06/18/21 08:14 08:19 08:24 Temperature Pulse Rate 64 70 72 Respiratory Rate Blood Pressure O2 Sat by Pulse 100 99 100 Oximetry O2 Sat by Pulse Oximetry [ Bilateral] 06/18/21 06/18/21 06/18/21 08:29 08:34 08:39 Temperature Pulse Rate 71 65 67 Respiratory Rate Blood Pressure O2 Sat by Pulse 99 98 100 Oximetry O2 Sat by Pulse Oximetry [ Bilateral] 06/18/21 06/18/21 06/18/21 08:44 08:47 08:49 Temperature Pulse Rate 73 70 72 Respiratory Rate Blood Pressure 142/63 O2 Sat by Pulse 100 100 Oximetry O2 Sat by Pulse Oximetry [ Bilateral] 06/18/21 06/18/21 06/18/21 09:01 10:04 10:10 Temperature Pulse Rate 86 71 77 Respiratory Rate Blood Pressure 153/86 154/88 O2 Sat by Pulse 100 Oximetry O2 Sat by Pulse Oximetry [ Bilateral] 06/18/21 06/18/21 06/18/21 11:11 15:49 16:51 Temperature Pulse Rate 55 L 69 75 Respiratory Rate Blood Pressure 161/97 134/76 O2 Sat by Pulse 89 Oximetry O2 Sat by Pulse Oximetry [ Bilateral] 06/18/21 06/18/21 06/18/21 17:59 18:12 18:50 Temperature Pulse Rate 71 71 66 Respiratory Rate Blood Pressure 167/85 149/77 130/68 O2 Sat by Pulse Oximetry O2 Sat by Pulse Oximetry [ Bilateral] - Exam Breasts: deferred Abdomen: Present: normal appearance, soft Vulva: both: normal Uterus: Present: normal FHR: auscultation normal, category 1 Uterine Contraction Monitor Mode: External Cervical Dilatation: 0 Uterine Contraction Pattern: Irregular Uterine Tone Measurement Phase: Resting Uterine Contraction Intensity: Mild Extremities: normal - Labs Labs: Abnormal Labs 06/17/21 06/17/21 06/17/21 13:22 13:22 16:22 Hgb 9.9 L MCV 69 L MCH 21 L RDW 18.3 H Sodium 136 L Carbon Dioxide 21 L POC Glucose 171 H Hemoglobin A1c Alkaline Phosphatase 197 H Total Protein 6.2 L Albumin 3.0 L 06/17/21 06/17/21 06/18/21 18:24 19:08 16:11 Hgb MCV MCH RDW Sodium Carbon Dioxide POC Glucose 129 H 114 H Hemoglobin A1c 9.6 H Alkaline Phosphatase Total Protein Albumin Laboratory Results - last 24 hr 06/17/21 06/17/21 06/17/21 19:08 20:25 22:11 POC Glucose 100 99 Hemoglobin A1c 9.6 H Coronavirus (PCR) 06/18/21 06/18/21 06/18/21 00:36 03:22 06:35 POC Glucose 88 87 98 Hemoglobin A1c Coronavirus (PCR) 06/18/21 06/18/21 06/18/21 09:09 16:11 Unknown POC Glucose 95 114 H Hemoglobin A1c Coronavirus (PCR) Negative
[2021-06-18] MEDS ORDERED: miSOPROStol 100 MCG TAB PO SCH ×2 (20:00)
[2021-06-18] MEDS: miSOPROStol 100 MCG TAB PO SCH (21:29)
[2021-06-19] MEDS: BUTORPHANOL 2 MG/1 ML INJ IV PRN (03:03)
[2021-06-19] MEDS: miSOPROStol 100 MCG TAB PO SCH (03:06)
[2021-06-19] MEDS: ONDANSETRON 4 MG/2 ML INJ IV PRN (05:26)
[2021-06-19] MEDS: LACTATED RINGERS 1,000 ML IV SCH ×4 (05:26→16:33)
[2021-06-19] MEDS: OXYTOCIN DRIP 30 UNITS/500 ML BAG IV SCH (09:31)
[2021-06-19] MEDS ORDERED: AMPICILLIN/NS 2 GM/100 ML 2 GM/100 ML BAG IV ONE (10:00)
[2021-06-19] MEDS ORDERED: NalbUPHINE 10 MG/1 ML INJ IV PRN (11:00)
[2021-06-19] MEDS ORDERED: diphenhydrAMINE 50 MG/ML VIAL IV PRN (11:00)
[2021-06-19] MEDS ORDERED: ePHEDrine SULFATE 50 MG/1 ML INJ IV PRN (11:00)
[2021-06-19] MEDS ORDERED: ONDANSETRON 4 MG/2 ML INJ IV PRN (11:00)
[2021-06-19] MEDS ORDERED: NALOXONE 2 MG/2 ML INJ IV PRN (11:00)
[2021-06-19] MEDS ORDERED: fentaNYL-BUPIV 2 MCG/ML-0.125% 200 MCG/100 ML BAG EPIDURAL SCH (11:00)
[2021-06-19] MEDS: valACYclovir 500 MG TAB PO SCH ×2 (11:19→21:28)
[2021-06-19] MEDS ORDERED: LACTATED RINGERS 250 ML IV SOLN IV ONE (11:30)
--- NOTE | 2021-06-19 12:05 | Anesthesia Consultation ---
Anesthesia Consult and Med Hx Date of service: 06/19/21 - Airway Anesthetic Teeth Evaluation: Good ROM Head & Neck: Adequate Mental/Hyoid Distance: Adequate Mallampati Class: Class II Intubation Access Assessment: Good - Pulmonary Exam CTA: Yes - Cardiac Exam Cardiac Exam: RRR - Pre-Operative Health Status ASA Pre-Surgery Classification: ASA2 Proposed Anesthetic Plan: Epidural - Pulmonary Hx Asthma: No COPD: No - Cardiovascular System Hx Hypertension: Yes (gestational hypertension) - Central Nervous System Hx Seizures: No Hx Psychiatric Problems: No - Endocrine Hx Renal Disease: No Hx End Stage Renal Disease: No Hx Non-Insulin Dependent Diabetes: Yes (GD) Hx Hypothyroidism: No Hx Hyperthyroidism: No - Hematic Hx Anemia: No Hx Sickle Cell Disease: No - Other Systems Hx Alcohol Use: No Hx Obesity: Yes
--- NOTE | 2021-06-19 12:10 | Progress Note ---
Regional Anesthesia Block - Regional Anesthesia Block Start Time: 11:30 Stop Time: 12:00 Performed By:: JEFF OLIVERA Procedure: Patient is requesting epidural for labor and pain. H&P, labs were reviewed. Patient IDed, H&P reviewed, all questions and concerns were answered, and consent was signed. Timeout was performed at bedside. Patient in sitting position. Sterile prep and drape was performed. 3ml of 1% lidocaine skin wheal at L[3]- L [4]. 18-gauge Tuohy epidural needle was advanced to loss of resistance with air technique cm. Negative CSF negative blood. Epidural catheter advanced to [16cm] centimeters. [negative] Aspiration [negative] test dose. Sterile dressing applied. Patient tolerated procedure.
--- NOTE | 2021-06-19 12:40 | Event Note ---
Date: 06/19/21 Assumed care of patient at 10:30 AM. Patient has just received epidural and is comfortable. SVE 3/-3/BBOW. Several markedly elevated blood pressures noted. Patient denies headache or visual disturbance. Has generalized edema. Patient is taking Labetalol. Ordered magnesium sulfate and discussed with patient and nurse. Hydralazine for any severe range BPs. FHR tracing is reassuring. CMP and urinalysis ordered.
[2021-06-19] MEDS ORDERED: hydrALAZINE 20 MG/1 ML INJ IV PRN (12:43)
[2021-06-19] MEDS ORDERED: MAGNESIUM SULFATE 40GM/1000ML 40 GM/1,000 ML BAG IV SCH (13:00)
[2021-06-19] MEDS ORDERED: MAGNESIUM SULFATE 4 GM/100 ML BAG IV ONE (13:00)
[2021-06-19] MEDS: AMPICILLIN/NS 1 GM/50 ML 1 GM/50 ML BAG IV SCH ×3 (13:24→21:28)
[2021-06-19] MEDS: fentaNYL-BUPIV 2 MCG/ML-0.125% 200 MCG/100 ML BAG EPIDURAL SCH ×2 (13:24→21:27)
[2021-06-19 14:06] LABS: Alanine Aminotransferase 16 units/L (7-56); Albumin 2.9 g/dL (3.9-5); BUN/Creatinine Ratio 9; Blood Urea Nitrogen 6 mg/dL (7-17); Calcium 9.3 mg/dL (8.4-10.2); Hemolysis Index 0; Uric Acid 5.4 mg/dL (3.5-7.6)
[2021-06-19] MEDS ORDERED: SODIUM CHLORIDE 0.9% 1000 ML 1,000 ML ONE (14:41)
[2021-06-19] MEDS ORDERED: SODIUM CHLORIDE 0.9% 1000 ML 1,000 ML VG SCH (16:00)
--- NOTE | 2021-06-19 19:56 | Event Note ---
Date: 06/19/21 SVE /-2. Pitocin increased (pt. has IUPC). Cosulted Dr. Arciniega re: lack of cervical change and intervention taken. Reassuring FHR tracing.
[2021-06-19] MEDS ORDERED: GENTAMICIN/NS 100 MG/100 ML 100 MG/100 ML BAG IV SCH (22:30)
--- NOTE | 2021-06-19 22:32 | Event Note ---
Date: 06/19/21 Gentamicin 100 mg IV every 8 hours ordered. Ampicillin orders changed to Ampicillin 2 grams IV every 6 hours. Anesthesia called for re-dose. SVE un changed except vertex lower now.
[2021-06-19] MEDS ORDERED: BUPIVACAINE/PF (0.25%) 2.5 MG/ML 10 ML VIAL INFILTRATI ONE (22:44)
[2021-06-19] MEDS ORDERED: PHENYLEPHRINE/NS 1,000 MCG/10 ML SYRINGE (OR USE) IV ONE (23:00)
[2021-06-19] MEDS ORDERED: METOCLOPRAMIDE 10 MG/2 ML INJ IV ONE (23:06)
[2021-06-19] MEDS ORDERED: BICITRA ORAL LIQD 30ML PO ONE (23:06)
[2021-06-19] MEDS ORDERED: FAMOTIDINE 20 MG/2 ML INJ IV ONE (23:06)
[2021-06-19] MEDS ORDERED: LIDOCAINE 2%/EPINEPHRINE 1:200,000 VIAL (20 ML) INFILTRATI ONE (23:08)
[2021-06-19] MEDS ORDERED: ONDANSETRON 4 MG/2 ML INJ ONE (23:09)
[2021-06-19] MEDS ORDERED: KETOROLAC 30 MG/1 ML INJ ONE (23:09)
[2021-06-19] MEDS ORDERED: LACTATED RINGERS 1,000 ML IV SCH (23:15)
--- NOTE | 2021-06-19 23:21 | Event Note ---
Date: 06/19/21 Pitocin turned off at 22:30 and patient repositioned due to variable FHR deceleration which recovered to normal FHR baseline with moderate variability. Amnioinfusion being given. Oxygen at 10 LPM per face mask. At 22:55 prolonged FHR deceleration noted which persisted in spite of position change and oxygen administration (pitocin remained off since 22:30). Called Dr. Arciniega at 23:00 and informed her of prolonged FHR deceleration unresponsive to interventions; stat section called at 23:00. Team notified. Informed patient and family of POC and need for stat section due to nonreassuring FHR tracing. Orders put in.
[2021-06-19] MEDS ORDERED: WATER FOR IRRIG STERILE 1,500 ML BOTTLE IR ONE (23:23)
[2021-06-19] MEDS ORDERED: SODIUM CHLORIDE 0.9% IRR 1,500 ML BOTTLE IR ONE (23:23)
[2021-06-19] MEDS ORDERED: ceFAZolin 1 GM VIAL ONE (23:24)
[2021-06-19] MEDS ORDERED: MIDAZOLAM 2 MG/2 ML INJ ONE (23:45)
[2021-06-19] MEDS ORDERED: OXYTOCIN DRIP 30 UNITS/500 ML BAG IV SCH (23:45)
[2021-06-20] MEDS ORDERED: BUPIVACAINE/PF (0.25%) 2.5 MG/ML 30 ML VIAL INFILTRATI ONE (00:07)
[2021-06-20] MEDS ORDERED: PROMETHAZINE 25 MG TAB PO PRN (00:28)
[2021-06-20] MEDS ORDERED: NALOXONE 0.4 MG/1 ML INJ IV PRN ×2 (00:28→00:30)
[2021-06-20] MEDS ORDERED: PROMETHAZINE 25 MG RECT SUPP PR PRN ×2 (00:28→00:30)
[2021-06-20] MEDS ORDERED: HYDROmorphone 1 MG/1 ML INJ IV PRN (00:28)
--- NOTE | 2021-06-20 00:28 | Progress Note ---
Regional Anesthesia Block - Regional Anesthesia Block Start Time: 00:20 Stop Time: 00:27 Performed By:: BONNIE GALLAGHER Procedure: Patient consented for TAP block for post surgical pain management. Patient identified, monitors placed, and time out performed. Mid axillary TAP identified bilaterally via ultrasound. Skin prepped bilaterally with [chlorhexidine] and [20g stimuplex] needle advanced to the TAP. 30ml [Marcaine 0.25%] injected unde r ultrasound guidance on the [left] side. 30ml [Marcaine 0.25%] injected under ultrasound guidance on the [right] side. Negative aspiration every 5mL, Patient tolerated the procedure well. No apparent complications seen.
[2021-06-20] MEDS ORDERED: LANOLIN/ZINC/DIMETHICONE (LANSINOH) 7 GM TP PRN (00:30)
[2021-06-20] MEDS ORDERED: IBUPROFEN 600 MG TAB PO PRN (00:30)
[2021-06-20] MEDS ORDERED: WITCH HAZEL/ GLYCERIN PAD TP PRN (00:30)
[2021-06-20] MEDS ORDERED: ONDANSETRON 4 MG/2 ML INJ IV PRN (00:30)
[2021-06-20] MEDS ORDERED: MORPHINE 2 MG/1 ML INJ IV PRN (00:30)
[2021-06-20] MEDS ORDERED: MORPHINE 4 MG/1 ML INJ IV PRN (00:30)
--- NOTE | 2021-06-20 00:30 | XRay Report ---
[facility] VIEW INDICATION / CLINICAL INFORMATION: stat or CALL REPORT TO [id number] COMPARISON: None available. FINDINGS: BONES / JOINT(S): No abnormality. SOFT TISSUES: No significant abnormality. ADDITIONAL FINDINGS: No radiopaque foreign body. Signer Name: José Miguel Peña MD Signed: 06/20/2021 12:25 AM Workstation Name: [id number]
--- NOTE | 2021-06-20 00:42 | Procedure Note ---
OB Delivery Note - Delivery Date of Delivery: 06/20/21 Surgeon: KE TUCKER Estimated blood loss: other (700ml) - Section Preop diagnosis: nonreassuring FHR tracing Postop diagnosis: same section procedure: primary low transverse Disposition: PACU Complications: none Narrative: Preop diagnosis: IUP at 38.0 weeks, Pre-eclampsia with non reassuring heart tracing, maternal obesity Postop diagnosis: Same, delivered Procedure: Emergency Primary low transverse section via Pfannenstiel incision Surgeon: Dr. Ke Tucker Assist: Pita Rodriguez CNM, Adrian Beavers RN Anesthesia spinal epidural Complications none EBL 700ml IV fluids 100mL Urine output 150ml Drains Alberto to gravity Findings: Viable male with weight 3230gms and 7/8, normal uterus tubes and ovaries bilaterally. Baby with tight nuchal cord. Procedure: Patient was consented in room 2006, taken to the operating room where excellent spinal anesthesia was confirmed. She was then placed in the dorsal supine position with a leftward tilt. The abdomen was prepped and draped in a sterile fashion, and a timeout was verified. A Pfannenstiel skin incision was made with a scalpel taken down to the underlying structures and the fascia was incised in the midline. The incision was extended laterally with curved Boyce scissors, the superior and inferior aspects of the fascial incisions were grasped with Jc clamps and the rectus muscles dissected sharply. The abdomen was entered bluntly in the midline carried down inferiorly with good visualization of the bladder. Bladder blade was inserted, the uterine incision was made sharply with a scalpel. The inferior and superior aspect of the uterine incisions were extended bluntly, the baby's head was delivered atraumatically. The remainder of the delivery was atraumatic, a tight nuchal cord was reduced after delivery of the vertex. The cord was clamped and cut and baby handed to waiting NICU team. Cord gasses obtained. An intact placenta with three-vessel cord was delivered manually. The uterus was then cleared of all clots and debris and the uterus exteriorized. The uterine incision was closed with 2 layers of 0 chromic with excellent hemostasis. The abdomen was then irrigated with warm normal saline and the uterus placed back into the abdomen atraumatically. A second look at the uterine incision assured hemostasis. The peritoneum was closed with 0 Vicryl, the rectus muscles approximated with 0 Vicryl, and the fascia closed with 0 Vicryl in the usual fashion. The subcuticular structures were closed with interrupted sutures of 3- 0 Vicryl and the skin closed with manuel. A pressure dressing was applied. All sponge needle and instrument counts were correct x2. There were no complications. Mom to the recovery area and baby to NICU in stable condition. EBL 700 mL Juan Jose Tucker MD
[2021-06-20] MEDS ORDERED: OXYTOCIN DRIP 30 UNITS/500 ML BAG IV SCH (01:00)
[2021-06-20] MEDS ORDERED: AMPICILLIN/NS 2 GM/100 ML 2 GM/100 ML BAG IV SCH (01:00)
[2021-06-20] MEDS: HYDROcodone/ACETAMINOPHEN 5-325 MG TAB PO PRN ×2 (06:26→13:16)
--- NOTE | 2021-06-20 08:35 | Progress Note ---
Subjective - Subjective Date of service: 06/20/21 Principal diagnosis: IUP@ 37.4 wks Interval history: Routine PP care. BPs stable to Mother/ Baby after 24 hours NÉSTOR Arciniega MD Patient reports: appetite normal, voiding normally, pain well controlled, ambulating normally : doing well Objective - Vital Signs Latest vital signs: Vital Signs Temp Pulse Resp BP BP Pulse Ox Pulse Ox 06/20/21 08:29 98 H 99 06/20/21 08:24 102 H 97 06/20/21 08:19 102 H 98 06/20/21 08:14 102 H 98 06/20/21 08:09 100 H 118/59 99 06/20/21 08:04 100 H 98 06/20/21 07:59 103 H 99 06/20/21 07:54 101 H 100 06/20/21 07:49 98 H 99 06/20/21 07:44 97 H 98 06/20/21 07:39 101 H 107/58 99 06/20/21 07:34 104 H 100 06/20/21 07:29 99 H 99 06/20/21 07:24 98 H 99 06/20/21 07:19 99 H 100 06/20/21 07:14 110 H 98 06/20/21 07:09 102 H 125/67 98 06/20/21 07:04 104 H 97 06/20/21 07:00 98 06/20/21 06:59 99 H 98 06/20/21 06:54 102 H 98 06/20/21 06:49 101 H 96 06/20/21 06:44 99 H 98 06/20/21 06:39 98 H 138/73 100 06/20/21 06:34 96 H 99 06/20/21 06:29 96 H 100 06/20/21 06:26 18 06/20/21 06:24 101 H 98 06/20/21 06:19 87 100 06/20/21 06:14 100 H 99 06/20/21 06:09 100 H 84/47 96 06/20/21 06:04 100 H 98 06/20/21 05:59 98 H 98 06/20/21 05:54 97 H 97 06/20/21 05:49 101 H 97 06/20/21 05:44 93 H 98 06/20/21 05:39 101 H 130/68 97 06/20/21 05:34 91 H 100 06/20/21 05:33 18 06/20/21 05:29 102 H 98 06/20/21 05:24 103 H 98 06/20/21 05:19 103 H 98 06/20/21 05:14 101 H 98 06/20/21 05:09 100 H 136/68 99 06/20/21 05:04 95 H 100 06/20/21 05:03 18 06/20/21 04:59 94 H 99 06/20/21 04:54 93 H 100 06/20/21 04:49 90 100 06/20/21 04:44 91 H 99 06/20/21 04:39 93 H 123/65 99 06/20/21 04:34 91 H 99 06/20/21 04:29 87 100 06/20/21 04:24 88 100 06/20/21 04:19 92 H 98 06/20/21 04:14 90 98 06/20/21 03:47 82 100 06/20/21 03:42 88 100 06/20/21 03:37 88 100 06/20/21 03:32 89 99 06/20/21 03:27 85 100 06/20/21 03:22 83 100 06/20/21 03:17 83 99 06/20/21 03:12 76 100 06/20/21 03:09 80 150/88 06/20/21 03:07 80 100 06/20/21 03:02 87 100 06/20/21 02:57 82 100 06/20/21 02:52 83 99 06/20/21 02:47 83 99 06/20/21 02:42 82 100 06/20/21 02:38 86 146/71 06/20/21 02:37 90 100 06/20/21 02:32 87 99 06/20/21 02:27 94 H 99 06/20/21 02:22 89 98 06/20/21 02:17 90 138/93 06/20/21 02:00 99 06/20/21 01:45 97.7 F 95 H 24 130/79 06/20/21 01:30 95 H 11 L 123/77 95 06/20/21 01:15 89 22 130/78 98 06/20/21 01:00 90 29 H 136/69 100 06/20/21 00:45 93 H 27 H 123/60 100 06/20/21 00:30 94 H 33 H 111/60 100 06/20/21 00:25 97 H 14 110/84 100 06/20/21 00:20 95 H 28 H 110/84 99 06/20/21 00:15 97.3 F L 96 H 14 96/46 99 06/19/21 23:07 93 H 100 06/19/21 23:04 100 H 125/60 06/19/21 23:02 100 H 100 06/19/21 22:59 107 H 94 06/19/21 22:57 103 H 100 06/19/21 22:52 115 H 100 06/19/21 22:47 112 H 100 06/19/21 22:43 111 H 138/65 06/19/21 22:42 110 H 100 06/19/21 22:37 113 H 99 06/19/21 22:32 121 H 99 06/19/21 22:28 117 H 140/82 06/19/21 22:27 118 H 100 06/19/21 22:22 115 H 100 06/19/21 22:20 124 H 151/93 06/19/21 22:17 123 H 98 06/19/21 22:12 112 H 151/93 98 06/19/21 22:07 118 H 98 06/19/21 22:06 112 H 141/90 06/19/21 22:02 111 H 100 06/19/21 21:57 112 H 99 06/19/21 21:52 109 H 100 06/19/21 21:47 111 H 99 06/19/21 21:42 106 H 100 06/19/21 21:37 110 H 100 06/19/21 21:32 125 H 100 06/19/21 21:30 119 H 88 06/19/21 21:27 107 H 100 06/19/21 21:22 100 H 99 06/19/21 21:17 103 H 99 06/19/21 21:14 105 H 139/68 06/19/21 21:12 106 H 98 06/19/21 21:07 101 H 98 06/19/21 21:02 101 H 98 06/19/21 20:59 100 H 136/64 06/19/21 20:57 103 H 98 06/19/21 20:52 103 H 98 06/19/21 20:47 103 H 98 06/19/21 20:43 104 H 135/69 06/19/21 20:42 103 H 99 06/19/21 20:37 99 H 99 06/19/21 20:32 108 H 100 06/19/21 20:29 107 H 133/78 06/19/21 20:27 105 H 99 06/19/21 20:22 104 H 99 06/19/21 20:17 101 H 98 06/19/21 20:14 100 H 134/66 06/19/21 20:12 104 H 99 06/19/21 20:07 103 H 99 06/19/21 20:02 102 H 98 06/19/21 19:58 98 H 131/58 06/19/21 19:57 101 H 98 06/19/21 19:52 97 H 100 06/19/21 19:48 97.9 F 06/19/21 19:47 97 H 100 06/19/21 19:44 96 H 136/65 06/19/21 19:42 99 H 99 06/19/21 19:37 96 H 99 06/19/21 19:32 116 H 99 06/19/21 19:29 99 H 141/71 06/19/21 19:27 98 H 99 06/19/21 19:22 107 H 98 06/19/21 19:17 94 H 100 06/19/21 19:15 99 06/19/21 19:14 92 H 133/63 06/19/21 19:12 99 H 99 06/19/21 19:07 95 H 100 06/19/21 19:02 95 H 98 06/19/21 18:59 96 H 138/68 06/19/21 18:57 101 H 100 06/19/21 18:52 105 H 99 06/19/21 18:47 95 H 99 06/19/21 18:43 88 125/56 06/19/21 18:42 90 100 06/19/21 18:37 96 H 99 06/19/21 18:32 98 H 98 06/19/21 18:28 91 H 132/61 06/19/21 18:27 94 H 99 06/19/21 18:22 92 H 100 06/19/21 18:17 102 H 99 06/19/21 18:14 90 127/59 06/19/21 18:12 91 H 99 06/19/21 18:07 92 H 100 06/19/21 18:02 94 H 100 06/19/21 17:58 95 H 124/59 06/19/21 17:57 87 100 06/19/21 17:52 95 H 98 06/19/21 17:47 91 H 100 06/19/21 17:44 93 H 124/59 06/19/21 17:42 97 H 100 06/19/21 17:37 89 100 06/19/21 17:32 88 99 06/19/21 17:28 89 124/59 06/19/21 17:27 91 H 97 06/19/21 17:22 98.0 F 101 H 20 98 06/19/21 17:17 91 H 98 06/19/21 17:14 85 121/58 06/19/21 17:12 89 100 06/19/21 17:07 92 H 98 06/19/21 17:02 85 100 06/19/21 17:00 81 119/56 06/19/21 16:57 89 100 06/19/21 16:52 89 100 06/19/21 16:47 89 99 06/19/21 16:43 87 122/59 06/19/21 16:42 85 100 06/19/21 16:37 81 99 06/19/21 16:32 85 99 06/19/21 16:29 85 122/60 06/19/21 16:27 85 99 06/19/21 16:22 85 96 06/19/21 16:18 51 L 89 06/19/21 16:17 87 100 06/19/21 16:13 83 123/57 06/19/21 16:12 89 100 06/19/21 16:07 91 H 100 06/19/21 16:02 88 100 06/19/21 15:58 81 121/58 06/19/21 15:57 85 100 06/19/21 15:52 79 100 06/19/21 15:47 80 98 06/19/21 15:46 83 121/59 06/19/21 15:44 76 90 06/19/21 15:42 82 100 06/19/21 15:37 94 H 100 06/19/21 15:32 86 100 06/19/21 15:28 86 124/68 06/19/21 15:27 61 L 06/19/21 15:25 81 28 L 06/19/21 15:22 82 100 06/19/21 15:17 73 100 06/19/21 15:14 78 116/59 06/19/21 15:12 75 100 06/19/21 15:07 77 99 06/19/21 15:04 89 92 06/19/21 15:02 76 98 06/19/21 14:59 77 158/71 06/19/21 14:57 78 98 06/19/21 14:52 89 100 06/19/21 14:47 84 100 06/19/21 14:45 97.6 F 20 06/19/21 14:43 92 H 127/60 06/19/21 14:42 92 H 98 06/19/21 14:37 89 100 06/19/21 14:32 79 100 06/19/21 14:28 81 126/59 06/19/21 14:27 77 100 06/19/21 14:22 78 100 06/19/21 14:17 77 100 06/19/21 14:13 88 119/59 06/19/21 14:12 86 100 06/19/21 14:07 86 100 06/19/21 14:02 93 H 100 06/19/21 13:58 76 135/71 06/19/21 13:57 83 99 06/19/21 13:52 85 100 06/19/21 13:47 90 100 06/19/21 13:43 79 132/71 06/19/21 13:42 86 98 06/19/21 13:37 74 100 06/19/21 13:32 87 100 06/19/21 13:29 89 132/78 06/19/21 13:27 96 H 100 06/19/21 13:22 96 H 99 06/19/21 13:17 71 98 06/19/21 13:13 88 123/68 06/19/21 13:12 88 99 06/19/21 13:07 86 99 06/19/21 13:02 88 100 06/19/21 12:59 75 124/59 06/19/21 12:57 89 99 06/19/21 12:52 73 99 06/19/21 12:47 83 100 06/19/21 12:43 71 119/80 06/19/21 12:42 83 99 06/19/21 12:37 76 99 06/19/21 12:32 73 100 06/19/21 12:27 75 99 06/19/21 12:22 82 109/68 99 06/19/21 12:17 79 114/72 99 06/19/21 12:13 72 123/56 06/19/21 12:12 77 99 06/19/21 12:08 78 127/61 06/19/21 12:07 70 100 06/19/21 12:02 74 136/77 100 06/19/21 12:00 98.0 F 65 18 162/94 06/19/21 11:59 76 173/108 06/19/21 11:57 77 100 06/19/21 11:56 77 159/93 06/19/21 11:54 72 124/86 06/19/21 11:52 81 100 06/19/21 11:47 77 100 06/19/21 11:42 69 100 06/19/21 11:37 85 99 06/19/21 11:32 57 L 73 L 06/19/21 11:29 79 150/67 06/19/21 11:18 69 164/90 06/19/21 09:29 61 138/81 Intake and Output 06/19/21 06/20/21 06/20/21 23:59 07:59 15:59 Intake Total 85.967 Output Total 950 2000 Balance -864.033 -2000 Intake: IV 85.967 AMPICILLIN/NS 1 GM/50 ML 50 1 gm In 50 ml @ 100 mls/ hr IV Q4H JORDAN Rx#: [id number] Lactated Ringers 1,000 ml 33.3 @ 125 mls/hr IV DIRECT JORDAN Rx#:[id number] PITOCin/NS 30 UNIT/500ML 2.667 30 units In 500 ml @ 40 mls/hr IV TITR JORDAN Rx#: [id number] Output: Urine 950 2000 Indwelling 200 1100 Indwelling Catheter 750 900 Other: Total, Output Amount 200 900 Estimated Blood Loss 750 - Exam Breasts: Present: deferred Cardiovascular: Present: Regular rate Lungs: Present: Clear to auscultation Abdomen: Present: normal appearance, soft, normal bowel sounds Uterus: Present: fundal height at umbilicus Deep Tendon Reflex Grade: Normal +2 Incision: Present: normal, dry, warm - Labs Labs: Abnormal lab results 06/19/21 06/19/21 06/19/21 Range/Units 08:51 13:24 18:02 Chloride 107.9 H (98-107) mmol/L BUN 6 L (7-17) mg/dL POC Glucose 109 H (70-105) mg/dL Magnesium 3.80 H (1.7-2.3) mg/dL Alkaline Phosphatase 214 H (35-129) units/L Total Protein 6.1 L (6.3-8.2) g/dL Albumin 2.9 L (3.9-5) g/dL 06/19/21 06/20/21 Range/Units 18:36 03:24 Chloride (98-107) mmol/L BUN (7-17) mg/dL POC Glucose 62 L (70-105) mg/dL Magnesium 3.70 H (1.7-2.3) mg/dL Alkaline Phosphatase (35-129) units/L Total Protein (6.3-8.2) g/dL Albumin (3.9-5) g/dL
[2021-06-20] MEDS: IBUPROFEN 800 MG TAB PO PRN ×2 (09:21→19:01)
--- NOTE | 2021-06-20 11:20 | Post Anesthesia Evaluation ---
- Post Anesthesia Evaluation Patient Participated: Yes Airway Patent: Yes Stable Respiratory Function: Yes Nausea/Vomiting: No Temp > 96.8F: Yes Pain Manageable: Yes Adequeate Hydration: Yes Anesthesia Complications: No Block Receding Appropriately: Yes Patient on Ventilator: No
[2021-06-20 14:55] LABS: Hematocrit 28.8 % (30.3-42.9); Hemoglobin 8.7 gm/dl (10.1-14.3)
[2021-06-20] MEDS: LACTATED RINGERS 1,000 ML IV SCH (16:13)
[2021-06-21] MEDS: IBUPROFEN 800 MG TAB PO PRN (01:15)
[2021-06-21] MEDS: HYDROcodone/ACETAMINOPHEN 5-325 MG TAB PO PRN ×3 (07:40→21:31)
[2021-06-21] MEDS: FERROUS SULFATE 325 MG TAB PO SCH (10:03)
[2021-06-21] MEDS: valACYclovir 500 MG TAB PO SCH ×2 (10:04→21:31)
--- NOTE | 2021-06-21 10:52 | Progress Note ---
Assessment and Plan A: /postop day 2 S/P primary LTCS. Anemia. Preeclampsia S/P magnesium sulfate; BPs stable on Labetalol. GDM. Obesity. P: Supplement with oral iron. Continue oral Labetalol. Monitor BPs. Anticipate discharge home tomorrow if patient continues to do well. Subjective - Subjective Date of service: 06/21/21 Principal diagnosis: /postop day 2 S/P primary LTCS Patient reports: appetite normal, voiding normally, pain well controlled, flatus, ambulating normally, no dizzy ambulation, no nauseated [place]: doing well Objective - Vital Signs Latest vital signs: Vital Signs Temp Pulse Resp BP BP Pulse Ox Pulse Ox 06/21/21 08:43 98.0 F 97 H 18 146/82 97 06/21/21 04:00 98.4 F 79 18 121/78 06/20/21 23:20 98.3 F 92 H 16 133/80 99 06/20/21 23:10 100 06/20/21 22:34 94 H 99 06/20/21 22:29 98 H 98 06/20/21 22:24 105 H 100 06/20/21 22:19 107 H 100 06/20/21 22:14 94 H 100 06/20/21 22:09 98 H 100 06/20/21 22:04 92 H 100 06/20/21 21:59 98 H 99 06/20/21 21:54 94 H 100 06/20/21 21:49 100 H 100 06/20/21 21:47 101 H 135/63 06/20/21 21:44 107 H 98 06/20/21 21:40 100 H 135/63 06/20/21 21:39 102 H 98 06/20/21 21:34 105 H 99 06/20/21 21:29 106 H 99 06/20/21 21:24 105 H 99 06/20/21 21:19 102 H 99 06/20/21 21:14 98 H 99 06/20/21 21:09 104 H 98 06/20/21 21:04 100 H 99 06/20/21 20:59 102 H 100 06/20/21 20:54 100 H 138/66 99 06/20/21 20:49 101 H 100 06/20/21 20:44 101 H 99 06/20/21 20:39 105 H 99 06/20/21 20:34 101 H 99 06/20/21 20:29 103 H 99 06/20/21 20:24 101 H 99 06/20/21 20:19 104 H 100 06/20/21 20:14 105 H 100 06/20/21 20:09 99 H 99 06/20/21 20:04 97 H 99 06/20/21 19:59 99 H 99 06/20/21 19:54 102 H 100 06/20/21 19:49 98 H 99 06/20/21 19:44 97 H 99 06/20/21 19:39 98 H 100 06/20/21 19:34 99 H 100 06/20/21 19:29 96 H 100 06/20/21 19:24 100 H 100 06/20/21 19:19 96 H 100 06/20/21 19:17 98.4 F 18 100 06/20/21 19:14 97 H 100 06/20/21 19:09 100 H 100 06/20/21 19:04 100 H 100 06/20/21 19:01 18 06/20/21 18:59 99 H 100 06/20/21 18:58 97 H 149/78 06/20/21 18:54 99 H 100 06/20/21 18:49 94 H 100 06/20/21 18:44 100 H 100 06/20/21 18:39 103 H 100 06/20/21 18:34 96 H 100 06/20/21 18:29 100 H 100 06/20/21 18:24 100 H 100 06/20/21 18:19 102 H 100 06/20/21 18:14 96 H 100 06/20/21 18:09 100 H 100 06/20/21 18:04 95 H 100 06/20/21 18:00 98 06/20/21 17:59 99 H 100 06/20/21 17:54 98 H 100 06/20/21 17:49 104 H 100 06/20/21 17:44 108 H 100 06/20/21 17:40 100 H 134/64 06/20/21 17:39 102 H 99 06/20/21 17:34 104 H 99 06/20/21 17:29 102 H 100 06/20/21 17:24 100 H 99 06/20/21 17:19 103 H 99 06/20/21 17:14 99 H 98 06/20/21 17:09 103 H 100 06/20/21 17:04 96 H 100 06/20/21 16:59 101 H 99 06/20/21 16:54 101 H 100 06/20/21 16:49 103 H 100 06/20/21 16:44 100 H 99 06/20/21 16:40 100 H 129/65 06/20/21 16:39 98 H 100 06/20/21 16:34 96 H 100 06/20/21 16:29 92 H 99 06/20/21 16:24 99 H 99 06/20/21 16:19 100 H 99 06/20/21 16:18 98.1 F 18 06/20/21 16:14 92 H 100 06/20/21 16:09 96 H 99 06/20/21 16:04 106 H 99 06/20/21 16:00 100 06/20/21 15:59 97 H 99 06/20/21 15:54 107 H 99 06/20/21 15:49 98 H 99 06/20/21 15:44 99 H 100 06/20/21 15:40 97 H 115/59 06/20/21 15:39 95 H 99 06/20/21 15:34 98 H 99 06/20/21 15:29 100 H 99 06/20/21 15:24 105 H 99 06/20/21 15:19 106 H 99 06/20/21 15:14 99 H 98 06/20/21 15:09 94 H 99 06/20/21 15:04 92 H 99 06/20/21 14:59 95 H 99 06/20/21 14:54 98 H 97 06/20/21 14:49 99 H 96 06/20/21 14:44 98 H 97 06/20/21 14:40 96 H 128/65 06/20/21 14:39 99 H 96 06/20/21 14:34 96 H 99 06/20/21 14:29 96 H 99 06/20/21 14:24 99 H 97 06/20/21 14:19 103 H 96 06/20/21 14:14 103 H 97 06/20/21 14:09 100 H 99 06/20/21 14:04 103 H 97 06/20/21 14:00 97 06/20/21 13:59 102 H 97 06/20/21 13:54 101 H 97 06/20/21 13:49 100 H 98 06/20/21 13:44 99 H 98 06/20/21 13:40 100 H 136/66 06/20/21 13:39 98 H 98 06/20/21 13:34 97 H 99 06/20/21 13:29 101 H 99 06/20/21 13:24 103 H 97 06/20/21 13:19 96 H 100 06/20/21 13:16 18 06/20/21 13:14 92 H 100 06/20/21 13:09 97 H 99 06/20/21 13:04 100 H 100 06/20/21 12:59 103 H 99 06/20/21 12:54 94 H 99 06/20/21 12:49 97 H 100 06/20/21 12:44 101 H 99 06/20/21 12:40 90 113/59 06/20/21 12:39 97 H 99 06/20/21 12:34 91 H 100 06/20/21 12:29 95 H 99 06/20/21 12:24 91 H 100 06/20/21 12:19 94 H 99 06/20/21 12:14 93 H 99 06/20/21 12:09 94 H 98 06/20/21 12:05 97.4 F L 18 99 06/20/21 12:04 100 H 100 06/20/21 11:59 87 99 06/20/21 11:54 93 H 99 06/20/21 11:49 87 99 06/20/21 11:46 88 130/62 06/20/21 11:44 89 99 06/20/21 11:40 87 130/61 06/20/21 11:39 91 H 100 06/20/21 11:34 88 100 06/20/21 11:29 98 H 99 06/20/21 11:24 85 99 06/20/21 11:19 86 100 06/20/21 11:14 92 H 99 06/20/21 11:09 87 100 06/20/21 11:04 89 98 06/20/21 10:59 90 99 06/20/21 10:54 89 100 06/20/21 10:49 101 H 99 Intake and Output 06/20/21 06/21/2121 23:59 07:59 15:59 Intake Total 200 Output Total 2650 1000 Balance -2650 -800 Intake: Oral 200 Output: Urine 2650 1000 Indwelling Catheter 2650 Void 1000 Other: Total, Intake Amount 200 Total, Output Amount 300 800 # Voids Void 1 - Exam Cardiovascular: Present: Regular rate Lungs: Present: Clear to auscultation Abdomen: Present: normal appearance, soft, normal bowel sounds. Absent: distention, tenderness, guarding, rigidity Uterus: Present: normal, firm, fundal height below umbilicus. Absent: bogginess, tenderness Extremities: Present: edema (mild bilateral edema of hands and feet). Absent: tenderness Incision: Present: dry, dressed - Labs Labs: Abnormal lab results 06/20/21 06/20/21 06/20/21 Range/Units 14:29 14:29 18:51 Hgb 8.7 L (10.1-14.3) gm/dl Hct 28.8 L (30.3-42.9) % POC Glucose (70-105) mg/dL Magnesium 4.50 H 4.40 H (1.7-2.3) mg/dL 06/21/21 Range/Units 00:31 Hgb (10.1-14.3) gm/dl Hct (30.3-42.9) % POC Glucose 141 H (70-105) mg/dL Magnesium (1.7-2.3) mg/dL
[2021-06-22] MEDS: HYDROcodone/ACETAMINOPHEN 5-325 MG TAB PO PRN ×2 (05:24→13:04)
--- NOTE | 2021-06-22 07:36 | Progress Note ---
Assessment and Plan A: /postop day 3 S/P primary LTCS. Anemia. Preeclampsia, S/P magnesium sulfate; BPs controlled on Labetalol. P: Discharge patient home today. Discussed with patient discharge instructions and warning signs. Advised patient to continue taking Labetalol 100 mg po BID at home (patient has Rx at home). Advised patient to continue taking vitamins and iron supplements at home. Advised patient to avoid intercourse, lifting, housework, and driving. Advised patient to take showers (not tub baths). Advised patient to follow up at [facility] office in 2 days. Patient voiced understanding of all instructions. Subjective - Subjective Date of service: 06/22/21 Principal diagnosis: /postop day 3 S/P primary LTCS Interval history: Patient desires discharge home today. Has Labetalol at home. Has vitamins and iron supplements at home. Patient reports: appetite normal, voiding normally, pain well controlled, flatus, ambulating normally, no dizzy ambulation, no nauseated [place]: doing well Objective - Vital Signs Latest vital signs: Vital Signs Temp Pulse Resp BP BP Pulse Ox Pulse Ox 06/22/21 05:24 12 06/22/21 04:00 98.7 F 78 18 105/67 06/22/21 00:25 98.7 F 107 H 18 125/74 99 06/21/21 21:32 88 153/88 06/21/21 21:31 12 06/21/21 20:55 98.0 F 93 H 18 131/78 99 06/21/21 20:45 100 06/21/21 18:21 100 06/21/21 16:28 97.3 F L 105 H 18 139/88 98 06/21/21 16:00 100 06/21/21 14:23 100 06/21/21 12:31 100 06/21/21 12:26 98.3 F 94 H 19 133/79 98 06/21/21 10:15 100 06/21/21 08:43 98.0 F 97 H 18 146/82 97 06/21/21 08:24 100 Intake and Output 06/21/21 06/21/21 06/22/21 15:59 23:59 07:59 Intake Total 300 Balance 300 Intake: Intake, Free Water 300 Other: # Voids Void 1 1 1 - Exam Cardiovascular: Present: Regular rate Lungs: Present: Clear to auscultation Abdomen: Present: normal appearance, soft, normal bowel sounds. Absent: distention, tenderness, guarding, rigidity Uterus: Present: normal, firm, fundal height below umbilicus. Absent: bogginess, tenderness Extremities: Present: normal. Absent: tenderness, edema Incision: Present: normal, dry, intact
--- NOTE | 2021-06-22 07:51 | Discharge Summary ---
Providers - Providers Date of Admission: 06/17/21 11:21 Date of discharge: 06/22/21 Attending physician: ELEUTERIO TODD MD 06/17/21 17:44 Consult to Dietitian/Nutrition [CONS] Routine Physician Instructions: Reason For Exam: Reason for Consult: Diet education Primary care physician: KE TUCKER MD Hospitalization Reason for admission: induction of labor Delivery: Procedure: primary low transverse Incision: normal, dry, intact Other procedures: none complications: none Discharge diagnosis: IUP at term delivered [place] baby: male Pertinent studies: Labs Hospital course: Stable hospital course Condition at discharge: Good Disposition: 01 HOME / SELF CARE / HOMELESS - Discharge Diagnoses (1) Term delivered Status: Acute (2) Anemia Status: Acute Plan - Discharge Medications Prescriptions: Ibuprofen [Motrin] 600 mg PO Q8H PRN #60 tablet PRN Reason: Pain oxyCODONE /ACETAMINOPHEN [Percocet 5/325] 1 tab PO Q6HR PRN #20 tablet PRN Reason: Pain - Provider Discharge Summary Activity: routine, no sex for 6 weeks, no heavy lifting 4 weeks, no strenuous exercise Diet: routine Instructions: routine Additional instructions: Continue taking your vitamins and iron supplements at home. Continue taking Labetalol 100 mg by mouth every 12 hours at home. Follow up at [facility] in 2 days. Call your doctor immediately for: * Fever > 100.5 * Heavy vaginal bleeding ( >1 pad per hour) * Severe persistent headache * Shortness of breath * Reddened, hot, painful area to leg or breast * Drainage or odor from incision. * Keep incision clean and dry at all times and follow doctor's instructions regarding bathing/showering - Follow up plan Follow up: KE TUCKER MD [Primary Care Provider] - 48 Hours
[2021-06-22] MEDS: FERROUS SULFATE 325 MG TAB PO SCH (13:05)
[2021-06-22 13:42] VITALS: BP 138/72
== END 2021-06-22 13:30 | disposition home or self-care (01) | DRG 787 ==
LOC: LD 11:21 → OB 06-20 23:07
PROC: 10D00Z1 Extraction of Products of Conception, Low, Open Approach (ICD-10-PCS; principal; 2021-06-20)
PROC: 10H07YZ Insertion of Other Device into Products of Conception, Via Natural or Artificial Opening (ICD-10-PCS; 2021-06-20)
PROC: 3E0T3BZ Introduction of Anesthetic Agent into Peripheral Nerves and Plexi, Percutaneous Approach (ICD-10-PCS; 2021-06-20)
DX: O13.4 Gestational [pregnancy-induced] hypertension without significant proteinuria, complicating childbirth (principal); O98.32 Other infections with a predominantly sexual mode of transmission complicating childbirth; O99.824 Streptococcus B carrier state complicating childbirth; Z3A.37 37 weeks gestation of pregnancy; A60.00 Herpesviral infection of urogenital system, unspecified; O99.214 Obesity complicating childbirth; E66.01 Morbid (severe) obesity due to excess calories; Z71.3 Dietary counseling and surveillance; Z79.84 Long term (current) use of oral hypoglycemic drugs; O24.429 Gestational diabetes mellitus in childbirth, unspecified control; O76 Abnormality in fetal heart rate and rhythm complicating labor and delivery; O14.94 Unspecified pre-eclampsia, complicating childbirth; O90.81 Anemia of the puerperium; D64.9 Anemia, unspecified
CPT/HCPCS: 36415; 59200; 72170; 80053; 82962; 83036; 83615; 83735; 84550; 85014; 85018; 85027; 86592; 86850; 86900; 86901; G0378; J0290; J0595; J0690; J1170; J1580; J1885; J2250; J2370; J2405; J2590; J3010; J3475; J7030; J7120; U0003